=== PATIENT | female | born 1985 | race Caucasian/White ===

== ENCOUNTER 2018-07-11 11:07 | Inpatient (IN) | payer BC ==
[2018-07-11] MEDS ORDERED: Sodium Chloride 0.9% 10 ML Syringe FLUSH PRN (11:38)
[2018-07-11] MEDS ORDERED: Ondansetron 4 MG/2 ML SDV IVPUSH PRN (11:38)
[2018-07-11] MEDS ORDERED: Nalbuphine 20 MG/ML 1 ML Syringe IVPUSH PRN (11:38)
[2018-07-11] MEDS ORDERED: Oxytocin/Lactated Ringers 10 UNIT/1,000 ML BAG IV SCH ×2 (11:45)
[2018-07-11] MEDS ORDERED: diphenhydrAMINE 50 MG/ML SDV IVPUSH PRN (13:21)
[2018-07-11] MEDS ORDERED: fentaNYL 100 MCG/2 ML SDV EPIDUR PRN (13:21)
[2018-07-11] MEDS ORDERED: ePHEDrine 50 MG/ML SDV IVPUSH PRN (13:21)
[2018-07-11] MEDS ORDERED: fentaNYL/Bupivacaine-NS 2 MCG/ML-0.125%/PF 100 ML Bag EP SCH (13:30)
[2018-07-11] MEDS: Lactated Ringers 1,000 ML IV SCH ×2 (13:41→14:27)
--- NOTE | 2018-07-11 13:59 | PCM.PREANE ---
Preanesthetic Assessment - Anesthesia/Transfusion/Family Hx Anesthesia History: Prior Anesthesia Without Reaction Family History of Anesthesia Reaction: No Transfusion History: No Prior Transfusion(s) - Review of Systems General: Fatigue Pulmonary: No Symptoms Cardiovascular: No Symptoms Gastrointestinal: Abdominal Pain (labor contractions) Neurological: No Symptoms Other: Reports: None - Physical Assessment Pulse: 92 O2 Sat by Pulse Oximetry: 98 Respiratory Rate: 20 Blood Pressure: 145/61 Temperature: 36.3 C Vital Signs: Last Vital Signs Temp 36.9 C 07/11/18 11:39 Pulse 119 H 07/11/18 11:39 Resp 20 07/11/18 11:39 BP 132/84 07/11/18 11:39 Pulse Ox Height: 1.7 m Weight: 108.409 kg ASA Class: 2 Mental Status: Alert & Oriented x3 Airway Class: Mallampati = 1 Dentition: Reports: Normal Dentition Thyro-Mental Finger Breadths: 3 Mouth Opening Finger Breadths: 3 ROM/Head Extension: Full Lungs: Clear to Auscultation, Normal Respiratory Effort Cardiovascular: Regular Rate, Regular Rhythm - Lab Values: Laboratory Last Values WBC 10.54 K/mm3 (3.98-10.04) H 07/11/18 12:08 RBC 4.52 M/mm3 (3.98-5.22) 07/11/18 12:08 Hgb 14.0 gm/L (11.2-15.7) 07/11/18 12:08 Hct 41.1 % (34.1-44.9) 07/11/18 12:08 MCV 90.9 fl (79.4-94.8) 07/11/18 12:08 MCH 31.0 pg (25.6-32.2) 07/11/18 12:08 MCHC 34.1 g/dl (32.2-35.5) 07/11/18 12:08 RDW Std Deviation 43.0 fL (36.4-46.3) 07/11/18 12:08 Plt Count 251 K/mm3 (182-369) 07/11/18 12:08 MPV 10.2 fl (9.4-12.3) 07/11/18 12:08 Neut % (Auto) 74.4 % (34.0-71.1) H 07/11/18 12:08 Lymph % (Auto) 17.2 % (19.3-51.7) L 07/11/18 12:08 [place] % (Auto) 7.8 % (4.7-12.5) 07/11/18 12:08 Eos % (Auto) 0.1 (0.7-5.8) L 07/11/18 12:08 Baso % (Auto) 0.1 % (0.1-1.2) 07/11/18 12:08 Neut # (Auto) 7.85 K/mm3 (1.56-6.13) H 07/11/18 12:08 Lymph # (Auto) 1.81 K/mm3 (1.18-3.74) 07/11/18 12:08 [place] # (Auto) 0.82 K/mm3 (0.24-0.36) H 07/11/18 12:08 Eos # (Auto) 0.01 K/mm3 (0.04-0.36) L 07/11/18 12:08 Baso # (Auto) 0.01 K/mm3 (0.01-0.08) 07/11/18 12:08 Blood Type A POSITIVE 07/11/18 12:08 Gel Antibody Screen Negative 07/11/18 12:08 - Allergies Allergies/Adverse Reactions: Allergies Allergy/AdvReac Type Severity Reaction Status Date / Time No Known Allergies Allergy Verified 05/11/17 11:23 - Anesthesia Plan Pre-Op Medication Ordered: None - Acknowledgements Anesthesia Type Planned: Epidural Pt an Appropriate Candidate for the Planned Anesthesia: Yes Alternatives and Risks of Anesthesia Discussed w Pt/Guardian: Yes Pt/Guardian Understands and Agrees with Anesthesia Plan: Yes PreAnesthesia Questionnaire Gastrointestinal History: Reports: Chronic Constipation, GERD 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: twin Psychiatric History: Reports: Depression - Past Surgical History HEENT Surgical History: Reports: Oral Surgery, Tonsillectomy GI Surgical History: Reports: Colonoscopy - SUBSTANCE USE Smoking Status *Q: Never Smoker Second Hand Smoke Exposure: No Recreational Drug Use History: No - HOME MEDS Home Medications: Home Meds Escitalopram Oxalate [Lexapro] 5 mg PO QAM 07/11/18 [History] Omeprazole Magnesium [Prilosec Otc] 20 mg PO DAILY 07/11/18 [History] PNV95/Ferrous Fumarate/FA [ Tablet] 1 each PO DAILY 07/11/18 [History] - CURRENT (IN HOUSE) MEDS Current Meds: Current Medications Diphenhydramine HCl (Benadryl) 25 mg IVPUSH Q6H PRN PRN Reason: Itching Ephedrine Sulfate (Ephedrine Sulfate) 5 mg IVPUSH ASDIRECTED PRN PRN Reason: HYPOTENTSION Fentanyl (Sublimaze) 100 mcg EPIDUR Q3H PRN PRN Reason: Pain Last Admin: 07/11/18 13:52 Dose: 100 mcg Fentanyl/Bupivacaine HCl (Ightsyeq-Afvtt-Ep 2 Mcg/Ml-0.125%) 100 ml EP ASDIRECTED ENEDINA Last Admin: 07/11/18 13:53 Dose: 100 ml Lactated Ringer's (Ringers, Lactated) 1,000 mls @ 100 mls/hr IV ASDIRECTED ENEDINA Last Admin: 07/11/18 13:41 Dose: 100 mls/hr Oxytocin/Lactated Ringer's (Pitocin In Lr 10 Units/1,000 Ml) 10 unit in 1,000 mls @ 12 mls/hr IV TITRATE ENEDINA; Protocol Oxytocin/Lactated Ringer's (Pitocin In Lr 10 Units/1,000 Ml) 10 unit in 1,000 mls @ 500 mls/hr IV .CONTINUOUS ENEDINA Lidocaine HCl (Xylocaine 1%) 50 ml INJECT ONETIME ONE Stop: 07/11/18 18:01 Nalbuphine HCl (Nubain) 10 mg IVPUSH Q2H PRN PRN Reason: pain Ondansetron HCl (Zofran) 4 mg IVPUSH Q4H PRN PRN Reason: Nausea/Vomiting Sodium Chloride (Saline Flush) 10 ml FLUSH ASDIRECTED PRN PRN Reason: Keep Vein Open
[2018-07-11] MEDS ORDERED: Methylergonovine 0.2 MG/1 ML Amp IM ONE (16:30)
--- NOTE | 2018-07-11 16:58 | PCM.SN ---
- Free Text/Narrative Note: Stage I - Patient presented with regular contractions at 2.5/100/0 and with some vaginal bleeding. AROM clear fluid. Progressed to complete with overall reassuring FHT. Stage II - Moved to OR. of viable male, weight 2580g APGARS 7/9 at 1610. Baby B then came down vtx from breech earlier. of viable male, APGARS 8/9 weight 2290g at 1619. Head delivered in controlled manner over intact perineum. Body and shoulders atraumatically. Cord clamped and cut. Baby B vtx. AROM clear fluid. Head delivered in controlled manner over intact perineum, body and shoulders without difficulty. Baby to warmer. Cord blood collected. Stage III - of intact placenta. 3vc. EBL 650. Methergine given after pitocin. Bladder emptied. 1st degree MLL repaired with 3-0 monocryl.
[2018-07-11] MEDS ORDERED: Witch Hazel Medicated Pads 100/Jar TOP PRN (17:29)
[2018-07-11] MEDS ORDERED: Benzocaine/Menthol 20%-0.5% Spray 56 GM Canister TOP PRN (17:29)
[2018-07-11] MEDS ORDERED: Lanolin 100% Cream 7 GM Tube TOP PRN (17:29)
[2018-07-11] MEDS ORDERED: Lidocaine 1% 50 ML MDV INJECT ONE (18:00)
[2018-07-11] MEDS: Ibuprofen 600 MG Tab PO PRN (19:44)
[2018-07-11] MEDS ORDERED: Bupivacaine 0.25% 10 ML SDV ONE (22:00)
--- NOTE | 2018-07-12 08:42 | PCM48HPAN ---
Post Anesthesia Note - EVALUATION WITHIN 48HRS OF ANESTHETIC Vital Signs in Normal Range: Yes Patient Participated in Evaluation: Yes Respiratory Function Stable: Yes Airway Patent: Yes Cardiovascular Function Stable: Yes Hydration Status Stable: Yes Pain Control Satisfactory: Yes Nausea and Vomiting Control Satisfactory: Yes Pulse Rate: 103 Resp Rate: 14 Temperature: 98.2 F Blood Pressure: 129/76
[2018-07-12] MEDS: Ibuprofen 600 MG Tab PO PRN (10:48)
[2018-07-13] MEDS: Ibuprofen 600 MG Tab PO PRN (04:11)
--- NOTE | 2018-07-13 08:21 | PCM.PNPP ---
- General Info Date of Service: 07/12/18 Functional Status: Reports: Pain Controlled - Review of Systems General: Reports: No Symptoms HEENT: Reports: No Symptoms Pulmonary: Reports: No Symptoms Cardiovascular: Reports: No Symptoms Gastrointestinal: Reports: No Symptoms Genitourinary: Reports: No Symptoms Musculoskeletal: Reports: No Symptoms Skin: Reports: No Symptoms Neurological: Reports: No Symptoms Psychiatric: Reports: No Symptoms - General Info Date of Service: 07/12/18 - Patient Data Vital Signs - Most Recent: Last Vital Signs Temp 36.7 C 07/13/18 04:32 Pulse 82 07/13/18 04:32 Resp 15 07/13/18 04:32 BP 112/60 07/13/18 04:32 Pulse Ox 96 07/13/18 04:32 Weight - Most Recent: 108.409 kg I&O - Last 24 Hours: Intake & Output 07/12/18 07/13/18 07/13/18 22:59 06:59 14:59 Intake Total 560 Balance 560 Lab Results - Last 24 Hours: Laboratory Results - last 24 hr 07/11/18 Range/Units 12:08 RPR Non-reactive (NONREACTIVE) Med Orders - Current: Current Medications Benzocaine/Menthol (Dermoplast Pain Relief [place]) 0 gm TOP ASDIRECTED PRN PRN Reason: Perineal Comfort Measure Last Admin: 07/11/18 19:45 Dose: 1 spray Emollient Ointment (Lansinoh Hpa) 0 gm TOP ASDIRECTED PRN PRN Reason: Sore Nipples Last Admin: 07/12/18 18:20 Dose: 1 applic Ibuprofen (Motrin) 600 mg PO Q6H PRN PRN Reason: Mild pain or fever Last Admin: 07/13/18 04:11 Dose: 600 mg Witch Lurdes (Tucks) 1 pad TOP ASDIRECTED PRN PRN Reason: Hemorrhoid pain Last Admin: 07/11/18 19:45 Dose: 1 pad Discontinued Medications Bupivacaine HCl (Sensorcaine-Mpf 0.25%) 10 ml .ROUTE .STK-MED ONE Stop: 07/11/18 22:01 Diphenhydramine HCl (Benadryl) 25 mg IVPUSH Q6H PRN PRN Reason: Itching Ephedrine Sulfate (Ephedrine Sulfate) 5 mg IVPUSH ASDIRECTED PRN PRN Reason: HYPOTENTSION Fentanyl (Sublimaze) 100 mcg EPIDUR Q3H PRN PRN Reason: Pain Last Admin: 07/11/18 13:52 Dose: 100 mcg Fentanyl/Bupivacaine HCl (Hanrqiqy-Gkuvd-Ii 2 Mcg/Ml-0.125%) 100 ml EP ASDIRECTED ENEDINA Last Admin: 07/11/18 13:53 Dose: 100 ml Lactated Ringer's (Ringers, Lactated) 1,000 mls @ 100 mls/hr IV ASDIRECTED ENEDINA Last Admin: 07/11/18 14:27 Dose: 100 mls/hr Oxytocin/Lactated Ringer's (Pitocin In Lr 10 Units/1,000 Ml) 10 unit in 1,000 mls @ 12 mls/hr IV TITRATE ENEDINA; Protocol Oxytocin/Lactated Ringer's (Pitocin In Lr 10 Units/1,000 Ml) 10 unit in 1,000 mls @ 500 mls/hr IV .CONTINUOUS ENEDINA Lidocaine HCl (Xylocaine 1%) 50 ml INJECT ONETIME ONE Stop: 07/11/18 18:01 Methylergonovine Maleate (Methergine) 0.2 mg IM ONETIME ONE Stop: 07/11/18 16:31 Last Admin: 07/11/18 19:44 Dose: 0.2 mg Nalbuphine HCl (Nubain) 10 mg IVPUSH Q2H PRN PRN Reason: pain Ondansetron HCl (Zofran) 4 mg IVPUSH Q4H PRN PRN Reason: Nausea/Vomiting Sodium Chloride (Saline Flush) 10 ml FLUSH ASDIRECTED PRN PRN Reason: Keep Vein Open - Interaction Support Person: - Recovery Exam Fundal Tone: Firm Fundal Level: At Umbilicus Fundal Placement: Midline Lochia Amount: Small Lochia Color: Rubra/Red Episiotomy/Laceration: Approximated Bladder Status: Voiding Urinary Elimination: Voided - Exam General: Alert, Oriented HEENT: Pupils Equal Neck: Supple Lungs: Clear to Auscultation, Normal Respiratory Effort Cardiovascular: Regular Rate, Regular Rhythm GI/Abdominal Exam: Normal Bowel Sounds, Soft, Non-Tender, No Organomegaly, No Distention, No Abnormal Bruit, No Mass, Pelvis Stable Extremities: Normal Inspection, Normal Range of Motion, Non-Tender, No Pedal Edema, Normal Capillary Refill Skin: Warm, Dry, Intact Neurological: No New Focal Deficit Psy/Mental Status: Alert, Normal Affect, Normal Mood - Problem List Review Problem List Initiated/Reviewed/Updated: Yes - My Orders Last 24 Hours: My Active Orders 07/12/18 17:29 Heat Therapy [OM.THIERRY] PRN
--- NOTE | 2018-07-13 08:25 | PCM.DCSUM1 ---
Discharge Summary - Hospital Course Diagnosis: Stroke: No - Discharge Data Discharge Date: 07/13/18 Discharge Disposition: Admitted As Inpatient 67 Condition: Good - Discharge Plan *PRESCRIPTION DRUG MONITORING PROGRAM REVIEWED*: No *COPY OF PRESCRIPTION DRUG MONITORING REPORT IN PATIENT TAIWO: No Home Medications: Home Meds Escitalopram Oxalate [Lexapro] 5 mg PO QAM 07/11/18 [History] Omeprazole Magnesium [Prilosec Otc] 20 mg PO DAILY 07/11/18 [History] PNV95/Ferrous Fumarate/FA [ Tablet] 1 each PO DAILY 07/11/18 [History] Patient Handouts: Breast Pumping Tips, Vaginal Delivery, Care After Referrals: Lucretia Correia MD [Primary Care Provider] - - Discharge Summary/Plan Comment DC Time >30 min.: Yes - General Info Date of Service: 07/13/18 Functional Status: Reports: Pain Controlled - Review of Systems General: Reports: No Symptoms HEENT: Reports: No Symptoms Pulmonary: Reports: No Symptoms Cardiovascular: Reports: No Symptoms Gastrointestinal: Reports: No Symptoms Genitourinary: Reports: No Symptoms Musculoskeletal: Reports: No Symptoms Skin: Reports: No Symptoms Neurological: Reports: No Symptoms Psychiatric: Reports: No Symptoms - Patient Data Vitals - Most Recent: Last Vital Signs Temp 36.7 C 07/13/18 04:32 Pulse 82 07/13/18 04:32 Resp 15 07/13/18 04:32 BP 112/60 07/13/18 04:32 Pulse Ox 96 07/13/18 04:32 Weight - Most Recent: 108.409 kg I&O - Last 24 hours: Intake & Output 07/12/18 07/13/18 07/13/18 22:59 06:59 14:59 Intake Total 560 Balance 560 Lab Results - Last 24 hrs: Laboratory Results - last 24 hr 07/11/18 Range/Units 12:08 RPR Non-reactive (NONREACTIVE) Med Orders - Current: Current Medications Benzocaine/Menthol (Dermoplast Pain Relief [place]) 0 gm TOP ASDIRECTED PRN PRN Reason: Perineal Comfort Measure Last Admin: 07/11/18 19:45 Dose: 1 spray Emollient Ointment (Lansinoh Hpa) 0 gm TOP ASDIRECTED PRN PRN Reason: Sore Nipples Last Admin: 01/31/19 18:20 Dose: 1 applic Ibuprofen (Motrin) 600 mg PO Q6H PRN PRN Reason: Mild pain or fever Last Admin: 07/13/18 04:11 Dose: 600 mg Witch Lurdes (Tucks) 1 pad TOP ASDIRECTED PRN PRN Reason: Hemorrhoid pain Last Admin: 07/11/18 19:45 Dose: 1 pad Discontinued Medications Bupivacaine HCl (Sensorcaine-Mpf 0.25%) 10 ml .ROUTE .STK-MED ONE Stop: 07/11/18 22:01 Diphenhydramine HCl (Benadryl) 25 mg IVPUSH Q6H PRN PRN Reason: Itching Ephedrine Sulfate (Ephedrine Sulfate) 5 mg IVPUSH ASDIRECTED PRN PRN Reason: HYPOTENTSION Fentanyl (Sublimaze) 100 mcg EPIDUR Q3H PRN PRN Reason: Pain Last Admin: 07/11/18 13:52 Dose: 100 mcg Fentanyl/Bupivacaine HCl (Ulhldabr-Bmfuf-Es 2 Mcg/Ml-0.125%) 100 ml EP ASDIRECTED ENEDINA Last Admin: 07/11/18 13:53 Dose: 100 ml Lactated Ringer's (Ringers, Lactated) 1,000 mls @ 100 mls/hr IV ASDIRECTED ENEDINA Last Admin: 07/11/18 14:27 Dose: 100 mls/hr Oxytocin/Lactated Ringer's (Pitocin In Lr 10 Units/1,000 Ml) 10 unit in 1,000 mls @ 12 mls/hr IV TITRATE ENEDINA; Protocol Oxytocin/Lactated Ringer's (Pitocin In Lr 10 Units/1,000 Ml) 10 unit in 1,000 mls @ 500 mls/hr IV .CONTINUOUS ENEDINA Lidocaine HCl (Xylocaine 1%) 50 ml INJECT ONETIME ONE Stop: 07/11/18 18:01 Methylergonovine Maleate (Methergine) 0.2 mg IM ONETIME ONE Stop: 07/11/18 16:31 Last Admin: 07/11/18 19:44 Dose: 0.2 mg Nalbuphine HCl (Nubain) 10 mg IVPUSH Q2H PRN PRN Reason: pain Ondansetron HCl (Zofran) 4 mg IVPUSH Q4H PRN PRN Reason: Nausea/Vomiting Sodium Chloride (Saline Flush) 10 ml FLUSH ASDIRECTED PRN PRN Reason: Keep Vein Open
== END 2018-07-13 12:32 | disposition critical access hospital (66) | DRG 560 ==
LOC: JD.OBCHECK 11:07 → JD.OB 11:07 → JD.OBCHECK 11:39 → JD.OB 11:39 → OBSVTOIN 16:10 → JD.OB 16:11
PROVIDERS: ADMIT Obstetrics & Gynecology; ATTEND Obstetrics & Gynecology
PROC: 6A550ZT Pheresis of Cord Blood Stem Cells, Single (ICD-10-PCS; principal; 2018-07-11)
PROC: 10907ZC Drainage of Amniotic Fluid, Therapeutic from Products of Conception, Via Natural or Artificial Opening (ICD-10-PCS; principal; 2018-07-11)
PROC: 10E0XZZ Delivery of Products of Conception, External Approach (ICD-10-PCS; principal; 2018-07-11)
PROC: 0HQ9XZZ Repair Perineum Skin, External Approach (ICD-10-PCS; principal; 2018-07-11)
PROC: 3E0R3BZ Introduction of Anesthetic Agent into Spinal Canal, Percutaneous Approach (ICD-10-PCS; 2018-07-11)
PROC: 00HU33Z Insertion of Infusion Device into Spinal Canal, Percutaneous Approach (ICD-10-PCS; 2018-07-11)
DX: O30.043 Twin pregnancy, dichorionic/diamniotic, third trimester (principal); O99.344 Other mental disorders complicating childbirth; Z37.2 Twins, both liveborn; O99.62 Diseases of the digestive system complicating childbirth; F32.9 Major depressive disorder, single episode, unspecified; K59.09 Other constipation; O70.0 First degree perineal laceration during delivery; K21.9 Gastro-esophageal reflux disease without esophagitis; Z79.899 Other long term (current) drug therapy; Z3A.37 37 weeks gestation of pregnancy
CPT/HCPCS: 36415; 51702; 59025; 59409; 85025; 86592; 86850; 86900; 86901; A9270-GY; J2210; J3010; J3490; J7120

== ENCOUNTER 2019-12-03 14:39 | Inpatient (IN) | payer BC ==
[~2019-12-03 14:39] MED LIST: Bupivacaine 0.25% 10 ML SDV ONE
[2019-12-03] MEDS ORDERED: Sodium Chloride 0.9% 10 ML Syringe FLUSH PRN (14:50)
[2019-12-03] MEDS ORDERED: Ondansetron 4 MG/2 ML SDV IVPUSH PRN ×2 (14:50→20:07)
[2019-12-03] MEDS ORDERED: Nalbuphine 10 MG/ML Syringe IVPUSH PRN (14:50)
[2019-12-03] MEDS ORDERED: Oxytocin/Lactated Ringers 10 UNIT/1,000 ML BAG IV SCH ×2 (15:00)
[2019-12-03] MEDS ORDERED: Ampicillin 2 GM in Sodium Chloride 0.9% 100 ML IV ONE (15:00)
[2019-12-03] MEDS: Lactated Ringers 1,000 ML IV SCH ×2 (15:23→22:30)
[2019-12-03] MEDS: Ampicillin 1 GM in Sodium Chloride 0.9% 100 ML IV SCH (19:38)
[2019-12-03] MEDS ORDERED: fentaNYL 100 MCG/2 ML SDV EPIDUR PRN (20:07)
[2019-12-03] MEDS ORDERED: ePHEDrine 50 MG/ML SDV IVPUSH PRN (20:07)
--- NOTE | 2019-12-03 20:13 | PCM.PREANE ---
Preanesthetic Assessment - Anesthesia/Transfusion/Family Hx Anesthesia History: Prior Anesthesia Without Reaction Family History of Anesthesia Reaction: No Transfusion History: No Prior Transfusion(s) Intubation History: Unknown - Review of Systems General: No Symptoms Pulmonary: No Symptoms Cardiovascular: No Symptoms Gastrointestinal: No Symptoms (GERD), Constipation Neurological: No Symptoms Other: Reports: None, Depression - Physical Assessment NPO Status Date: 12/03/19 NPO Status Time: 19:00 Vital Signs: Last Vital Signs Temp 36.8 C 12/03/19 14:51 Pulse Resp 14 12/03/19 14:51 BP 129/79 12/03/19 14:51 Pulse Ox 100 12/03/19 14:51 Asptg=728 Height: 1.7 m Weight: 100.108 kg ASA Class: 2 Mental Status: Alert & Oriented x3 Airway Class: Mallampati = 2 Dentition: Reports: Normal Dentition, [place] Thyro-Mental Finger Breadths: 3 Mouth Opening Finger Breadths: 3 ROM/Head Extension: Full Lungs: Clear to Auscultation, Normal Respiratory Effort Cardiovascular: Regular Rate, Regular Rhythm, No Murmurs - Lab Values: Laboratory Last Values WBC 8.92 K/mm3 (3.98-10.04) 12/03/19 15:10 RBC 4.47 M/mm3 (3.98-5.22) 12/03/19 15:10 Hgb 13.2 gm/dl (11.2-15.7) 12/03/19 15:10 Hct 39.6 % (34.1-44.9) 12/03/19 15:10 MCV 88.6 fl (79.4-94.8) 12/03/19 15:10 MCH 29.5 pg (25.6-32.2) 12/03/19 15:10 MCHC 33.3 g/dl (32.2-35.5) 12/03/19 15:10 RDW Std Deviation 41.7 fL (36.4-46.3) 12/03/19 15:10 Plt Count 310 K/mm3 (182-369) 12/03/19 15:10 MPV 9.6 fl (9.4-12.3) 12/03/19 15:10 Neut % (Auto) 68.5 % (34.0-71.1) 12/03/19 15:10 Lymph % (Auto) 21.4 % (19.3-51.7) 12/03/19 15:10 [place] % (Auto) 9.2 % (4.7-12.5) 12/03/19 15:10 Eos % (Auto) 0.4 (0.7-5.8) L 12/03/19 15:10 Baso % (Auto) 0.1 % (0.1-1.2) 12/03/19 15:10 Neut # (Auto) 6.10 K/mm3 (1.56-6.13) 12/03/19 15:10 Lymph # (Auto) 1.91 K/mm3 (1.18-3.74) 12/03/19 15:10 [place] # (Auto) 0.82 K/mm3 (0.24-0.36) H 12/03/19 15:10 Eos # (Auto) 0.04 K/mm3 (0.04-0.36) 12/03/19 15:10 Baso # (Auto) 0.01 K/mm3 (0.01-0.08) 12/03/19 15:10 Above labs reviewed and noted and within acceptable ranges to proceed with epidural if desired. 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: twin Psychiatric History: Reports: Depression - Past Surgical History HEENT Surgical History: Reports: Oral Surgery, Tonsillectomy GI Surgical History: Reports: Colonoscopy - SUBSTANCE USE Smoking Status *Q: Never Smoker Second Hand Smoke Exposure: No Recreational Drug Use History: No - HOME MEDS Home Medications: Home Meds Pnv No.95/Ferrous Fum/Folic AC [ Tablet] 1 each PO DAILY 07/11/18 [History] Docusate Sodium [Colace] 100 mg PO DAILY 12/03/19 [History] Escitalopram Oxalate [Lexapro] 5 mg PO ASDIRECTED 12/03/19 [History] [place]-3/DHA/Epa/Fish Oil [Fish Oil 1,000 mg Softgel] 1 each PO DAILY 12/03/19 [History] - CURRENT (IN HOUSE) MEDS Current Meds: Current Medications Ephedrine Sulfate (Ephedrine Sulfate) 5 mg IVPUSH ASDIRECTED PRN PRN Reason: Hypotension Fentanyl (Sublimaze) 100 mcg EPIDUR Q3H PRN PRN Reason: Pain Fentanyl/Bupivacaine HCl (Fentanyl/Bupivacaine/Ns 2 Mcg-0.125% 100 Ml) 100 ml EPIDUR ASDIRECTED ENEDINA Ampicillin Sodium 1 gm/ Sodium (Chloride) 100 mls @ 200 mls/hr IV Q4H ENEDINA Last Admin: 12/03/19 19:38 Dose: 200 mls/hr Documented by: Oxytocin/Lactated Ringer's (Pitocin In Lr 10 Units/1,000 Ml) 10 unit in 1,000 mls @ 12 mls/hr IV TITRATE ENEDINA; Protocol Last Titration: 12/03/19 20:10 Dose: 12 munits/min, 72 mls/hr Documented by: Oxytocin/Lactated Ringer's (Pitocin In Lr 10 Units/1,000 Ml) 10 unit in 1,000 mls @ 100 mls/hr IV .CONTINUOUS ENEDINA Lactated Ringer's (Ringers, Lactated) 1,000 mls @ 100 mls/hr IV ASDIRECTED ENEDINA Last Admin: 12/03/19 15:23 Dose: 100 mls/hr Documented by: Phenylephrine HCl 1 mg/ Sodium (Chloride) 10.1 mls @ 1 mls/sec IV TITRATE ENEDINA; Protocol Nalbuphine HCl (Nubain) 10 mg IVPUSH Q2H PRN PRN Reason: Pain Last Admin: 12/03/19 20:03 Dose: 10 mg Documented by: Ondansetron HCl (Zofran) 4 mg IVPUSH Q4H PRN PRN Reason: Nausea/Vomiting Ondansetron HCl (Zofran) 4 mg IVPUSH ONETIME PRN PRN Reason: Nausea/Vomiting Sodium Chloride (Saline Flush) 10 ml FLUSH ASDIRECTED PRN PRN Reason: Keep Vein Open Discontinued Medications Ampicillin Sodium 2 gm/ Sodium (Chloride) 100 mls @ 200 mls/hr IV ONETIME ONE Stop: 12/03/19 15:29 Last Admin: 12/03/19 15:23 Dose: 200 mls/hr Documented by:
[2019-12-03] MEDS ORDERED: Phenylephrine 1 MG in Sodium Chloride 0.9% 10 ML IV SCH (20:15)
[2019-12-03] MEDS ORDERED: Bupivacaine/fentaNYL/NS 100 ML Bag EPIDUR SCH (20:15)
--- NOTE | 2019-12-03 23:59 | PCM.LDHP ---
L&D History of Present Illness - General Date of Service: 12/03/19 Admit Problem/Dx: Patient Status Order with Admit Dx/Problem 12/03/19 14:51 Patient Status [ADT] Routine Admission Diagnosis/Problem Admission Diagnosis/Problem Source of Information: Patient History Limitations: Reports: No Limitations - History of Present Illness Introduction:: 34 year old presented to clinic at 39w3 with SROM (nitrazine and pool positive). PNC complicated by history of twins last delivery and GBS positive Pain Score: 8 - Related Data Allergies/Adverse Reactions: Allergies Allergy/AdvReac Type Severity Reaction Status Date / Time No Known Allergies Allergy Verified 12/03/19 14:48 Home Medications: Home Meds Pnv No.95/Ferrous Fum/Folic AC [ Tablet] 1 each PO DAILY 07/11/18 [History] Docusate Sodium [Colace] 100 mg PO DAILY 12/03/19 [History] Escitalopram Oxalate [Lexapro] 5 mg PO ASDIRECTED 12/03/19 [History] [place]-3/DHA/Epa/Fish Oil [Fish Oil 1,000 mg Softgel] 1 each PO DAILY 12/03/19 [History] Past Medical History Gastrointestinal History: Reports: Chronic Constipation [employer] History: Reports: Other OB/BYN History: twin Psychiatric History: Reports: Depression - Past Surgical History HEENT Surgical History: Reports: Oral Surgery, Tonsillectomy GI Surgical History: Reports: Colonoscopy Social & Family History - Family History Family Medical History: Noncontributory - Tobacco Use Smoking Status *Q: Never Smoker Second Hand Smoke Exposure: No - Caffeine Use Caffeine Use: Reports: Coffee, Soda - Recreational Drug Use Recreational Drug Use: No H&P Review of Systems - Review of Systems: Review Of Systems: See Below General: Reports: No Symptoms HEENT: Reports: No Symptoms Pulmonary: Reports: No Symptoms Cardiovascular: Reports: No Symptoms Gastrointestinal: Reports: No Symptoms Genitourinary: Reports: No Symptoms Musculoskeletal: Reports: No Symptoms Skin: Reports: No Symptoms Psychiatric: Reports: No Symptoms Neurological: Reports: No Symptoms Hematologic/Lymphatic: Reports: No Symptoms Immunologic: Reports: No Symptoms L&D Exam - Exam Exam: See Below - Vital Signs Vital Signs: Last Vital Signs Temp 36.8 C 12/03/19 14:51 Pulse Resp 14 12/03/19 14:51 BP 129/79 12/03/19 14:51 Pulse Ox 100 12/03/19 14:51 Weight: 100.108 kg - OB Specific Contraction Intensity: Moderate Movement: Active Heart Tones: Present Heart Tones per Min: 130 Heart Rate (FHR) Variability: Moderate (6-25 bmp) Presentation: Vertex - Nevarez Score Nevarez Score Cervix Position: Midposition Nevraez Score Consistency: Soft Nevarez Score Effacement: >80% Nevarez Score Dilation: 3-4 cm Nevarez Score 's Station: -2 Nevarez Score Total: 9 - Exam General: Alert, Oriented HEENT: PERRLA, Conjunctiva Clear, EACs Clear, EOMI, Hearing Intact, Mucosa Moist & [place], Nares Patent, Normal Nasal Septum, Posterior Pharynx Clear, TMs Clear Neck: Supple, Trachea Midline Lungs: Clear to Auscultation, Normal Respiratory Effort Cardiovascular: Regular Rate, Regular Rhythm GI/Abdominal Exam: Normal Bowel Sounds, Soft, Non-Tender, No Organomegaly, No Distention, No Abnormal Bruit, No Mass, Pelvis Stable Back Exam: Normal Inspection, Full Range of Motion Extremities: Normal Inspection, Normal Range of Motion, Non-Tender, No Pedal Edema, Normal Capillary Refill Skin: Warm, Dry, Intact Neurological: Cranial Nerves Intact, Reflexes Equal Bilateral Psychiatric: Alert, Normal Affect, Normal Mood - Patient Data Lab Results Last 24 hrs: Laboratory Results - last 24 hr 12/03/19 Range/Units 15:10 WBC 8.92 (3.98-10.04) K/mm3 RBC 4.47 (3.98-5.22) M/mm3 Hgb 13.2 (11.2-15.7) gm/dl Hct 39.6 (34.1-44.9) % MCV 88.6 (79.4-94.8) fl MCH 29.5 (25.6-32.2) pg MCHC 33.3 (32.2-35.5) g/dl RDW Std Deviation 41.7 (36.4-46.3) fL Plt Count 310 (182-369) K/mm3 MPV 9.6 (9.4-12.3) fl Neut % (Auto) 68.5 (34.0-71.1) % Lymph % (Auto) 21.4 (19.3-51.7) % [place] % (Auto) 9.2 (4.7-12.5) % Eos % (Auto) 0.4 L (0.7-5.8) Baso % (Auto) 0.1 (0.1-1.2) % Neut # (Auto) 6.10 (1.56-6.13) K/mm3 Lymph # (Auto) 1.91 (1.18-3.74) K/mm3 [place] # (Auto) 0.82 H (0.24-0.36) K/mm3 Eos # (Auto) 0.04 (0.04-0.36) K/mm3 Baso # (Auto) 0.01 (0.01-0.08) K/mm3 Result Diagrams: 12/03/19 15:10 Problem List Initiated/Reviewed/Updated: Yes Orders Last 24hrs: Active Orders 24 hr Category Date Time Status Patient Status [ADT] Routine ADT 12/03/19 14:51 Active Activity as Tolerated [RC] PFP Care 12/03/19 14:51 Active Communication Order [RC] ASDIRECTED Care 12/03/19 14:51 Active Heart Tones [RC] ASDIRECTED Care 12/03/19 14:51 Active Notify Provider [RC] ASDIRECTED Care 12/03/19 20:07 Active Notify Provider [RC] PFP Care 12/03/19 14:51 Active Notify Provider [RC] PRN Care 12/03/19 14:51 Active Oxygen Therapy [RC] ASDIRECTED Care 12/03/19 20:07 Active Peripheral IV Care [RC] . DIRECTED Care 12/03/19 14:51 Active Pulse Oximetry [RC] ASDIRECTED Care 12/03/19 20:07 Active Vital Signs [RC] PER UNIT ROUTINE Care 12/03/19 14:51 Active Regular Diet [DIET] Diet 12/03/19 Dinner Active BLOOD BANK HOLD SPECIMEN [BBK] Stat Lab 12/03/19 15:10 Received RAPID PLASMA REAGIN,RPR [CHEM] Routine Lab 12/03/19 15:10 Received Ampicillin 1 gm Med 12/03/19 19:30 Active Sodium Chloride 0.9% [Normal Saline] 100 ml IV Q4H Bupivacaine/fentaNYL/NS [fentaNYL/Bupivacaine/NS 2 MCG- Med 12/03/19 20:15 Active 0.125% 100 ML] 100 ml EPIDUR ASDIRECTED Lactated Ringers [Ringers, Lactated] 1,000 ml Med 12/03/19 15:00 Active IV ASDIRECTED Nalbuphine [Nubain] Med 12/03/19 14:50 Active 10 mg IVPUSH Q2H PRN Ondansetron [Zofran] Med 12/03/19 20:07 Active 4 mg IVPUSH ONETIME PRN Ondansetron [Zofran] Med 12/03/19 14:50 Active 4 mg IVPUSH Q4H PRN Oxytocin/Lactated Ringers [Pitocin in LR 10 Units/1,000 Med 12/03/19 15:00 Active ML] 10 unit in 1,000 ml IV .CONTINUOUS Oxytocin/Lactated Ringers [Pitocin in LR 10 Units/1,000 Med 12/03/19 15:00 Active ML] 10 unit in 1,000 ml IV TITRATE Phenylephrine [Fred-Synephrine] 1 mg Med 12/03/19 20:15 Active Sodium Chloride 0.9% [Normal Saline] 10 ml IV TITRATE Sodium Chloride 0.9% [Saline Flush] Med 12/03/19 14:50 Active 10 ml FLUSH ASDIRECTED PRN ePHEDrine [ePHEDrine sulfate] [facility] 12/03/19 20:07 Active 5 mg IVPUSH ASDIRECTED PRN fentaNYL [Sublimaze] [facility] 12/03/19 20:07 Active 100 mcg EPIDUR Q3H PRN Electronic Heart Tones Ext w TOCO [WOMSER] Oth 12/03/19 14:51 Ordered Routine Electronic Heart Tones Internal [WOMSER] Per Unit Ot 12/03/19 14:51 Ordered Routine Peripheral IV Insertion Adult [OM.PC] Routine Oth 12/03/19 14:51 Ordered Resuscitation Status Routine Resus Stat 12/03/19 14:50 Ordered Medication Orders Ephedrine Sulfate (Ephedrine Sulfate) 5 mg IVPUSH ASDIRECTED PRN PRN Reason: Hypotension Fentanyl (Sublimaze) 100 mcg EPIDUR Q3H PRN PRN Reason: Pain Last Admin: 12/03/19 22:45 Dose: 100 mcg Documented by: ANTHONYRTAM Fentanyl/Bupivacaine HCl (Fentanyl/Bupivacaine/Ns 2 Mcg-0.125% 100 Ml) 100 ml EPIDUR ASDIRECTED ENEDINA Last Admin: 12/03/19 22:46 Dose: 100 ml Documented by: HIREN Ampicillin Sodium 1 gm/ Sodium (Chloride) 100 mls @ 200 mls/hr IV Q4H ENEDINA Last Admin: 12/03/19 19:38 Dose: 200 mls/hr Documented by: HIREN Oxytocin/Lactated Ringer's (Pitocin In Lr 10 Units/1,000 Ml) 10 unit in 1,000 mls @ 12 mls/hr IV TITRATE ENEDINA; Protocol Last Titration: 12/03/19 23:02 Dose: 10 munits/min, 60 mls/hr Documented by: Titration: 12/03/19 20:47 Dose: 14 munits/min, 84 mls/hr Documented by: ANTHONYRTYEIMI Titration: 12/03/19 20:10 Dose: 12 munits/min, 72 mls/hr Documented by: ANTHONYRTYEIMI Titration: 12/03/19 18:25 Dose: 10 munits/min, 60 mls/hr Documented by: Titration: 12/03/19 17:47 Dose: 8 munits/min, 48 mls/hr Documented by: Titration: 12/03/19 17:20 Dose: 6 munits/min, 36 mls/hr Documented by: Titration: 12/03/19 16:49 Dose: 4 munits/min, 24 mls/hr Documented by: Admin: 12/03/19 15:27 Dose: 2 munits/min, 12 mls/hr Documented by: SIOBHAN Oxytocin/Lactated Ringer's (Pitocin In Lr 10 Units/1,000 Ml) 10 unit in 1,000 mls @ 100 mls/hr IV .CONTINUOUS ENEDINA Lactated Ringer's (Ringers, Lactated) 1,000 mls @ 100 mls/hr IV ASDIRECTED ENEDINA Last Infusion: 12/03/19 22:10 Dose: 999 mls/hr Documented by: Admin: 12/03/19 15:23 Dose: 100 mls/hr Documented by: SIOBHAN Phenylephrine HCl 1 mg/ Sodium (Chloride) 10.1 mls @ 1 mls/sec IV TITRATE ENEDINA; Protocol Nalbuphine HCl (Nubain) 10 mg IVPUSH Q2H PRN PRN Reason: Pain Last Admin: 12/03/19 20:03 Dose: 10 mg Documented by: HIREN Ondansetron HCl (Zofran) 4 mg IVPUSH Q4H PRN PRN Reason: Nausea/Vomiting Ondansetron HCl (Zofran) 4 mg IVPUSH ONETIME PRN PRN Reason: Nausea/Vomiting Sodium Chloride (Saline Flush) 10 ml FLUSH ASDIRECTED PRN PRN Reason: Keep Vein Open Assessment/Plan Comment:: Term labor. Augment as needed. AROM of forebag. Anticipate
--- NOTE | 2019-12-04 00:03 | PCM.SN.2 ---
- Free Text/Narrative Note: Stage I - Patient presented with SROM. AROM of forebag, pitocin and antibiotic for GBS. Epidural. Progressed to complete with overall reassuring FHT. Stage II - of viable female, weight 3010g, APGARS 8/9 at 2338. Head delivered in controlled manner over intact perineum. Body and shoulders atraumatically. Nuchal cord. Placed on maternal abdomen. Cord clamped and cut at 1 minute of life. Cord blood collected. Stage III - Placenta delivered spontaneous and intact. Significant bleeding. Bladder emptied (was also emptied just prior to delivery). EBL 350. Pitocin initiated after delivery of baby. Methergine given. No lacerations.
[2019-12-04] MEDS ORDERED: Benzocaine/Menthol 20%-0.5% Spray 56 GM Canister TOP PRN (00:43)
[2019-12-04] MEDS ORDERED: Docusate Sodium 100 MG Cap PO PRN (00:43)
[2019-12-04] MEDS ORDERED: Witch Hazel Medicated Pads 40/Jar TOP PRN (00:43)
[2019-12-04] MEDS ORDERED: Methylergonovine 0.2 MG/1 ML Amp IM PRN (00:43)
[2019-12-04] MEDS: Ampicillin 1 GM in Sodium Chloride 0.9% 100 ML IV SCH (00:49)
[2019-12-04] MEDS: Ibuprofen 600 MG Tab PO PRN ×2 (01:25→16:16)
[2019-12-04] MEDS ORDERED: Dextrose 5%-Lactated Ringers 1,000 ML IV SCH (19:30)
--- NOTE | 2019-12-05 07:55 | PCM.DCSUM1 ---
Discharge Summary - Hospital Course Brief History: Admitted with SROM. Pitocin and AROM of forebag Diagnosis: Stroke: No - Discharge Data Discharge Date: 12/05/19 Discharge Disposition: Home, Self-Care 01 Condition: Good - Referral to Home Health Primary Care Physician: Lucretia Correia MD - Patient Summary/Data Hospital Course: Uncomplicated delivery. Infant with questionable heart block. - Patient Instructions Diet: Usual Diet as Tolerated Activity: No Strenuous Activities Activity, Other: pelvic rest Driving: May Drive Today Showering/Bathing: May Shower Wound/Incision Care: Keep Operative Site/Wound Site Clean and Dry Notify Provider of: Fever, Increased Pain, Swelling and Redness, Drainage, Nausea and/or Vomiting - Discharge Plan *PRESCRIPTION DRUG MONITORING PROGRAM REVIEWED*: No *COPY OF PRESCRIPTION DRUG MONITORING REPORT IN PATIENT TAIWO: No Home Medications: Home Meds Pnv No.95/Ferrous Fum/Folic AC [ Tablet] 1 each PO DAILY 07/11/18 [History] Docusate Sodium [Colace] 100 mg PO DAILY 12/03/19 [History] Escitalopram Oxalate [Lexapro] 5 mg PO ASDIRECTED 12/03/19 [History] [place]-3/DHA/Epa/Fish Oil [Fish Oil 1,000 mg Softgel] 1 each PO DAILY 12/03/19 [History] Patient Handouts: Breast Pumping Tips, and Self-Care, Care After Vaginal Delivery Referrals: Lucretia Correia MD [Primary Care Provider] - - Discharge Summary/Plan Comment DC Time >30 min.: No - General Info Date of Service: 12/05/19 Functional Status: Reports: Pain Controlled - Review of Systems General: Reports: No Symptoms HEENT: Reports: No Symptoms Pulmonary: Reports: No Symptoms Cardiovascular: Reports: No Symptoms Gastrointestinal: Reports: No Symptoms Genitourinary: Reports: No Symptoms Musculoskeletal: Reports: No Symptoms Skin: Reports: No Symptoms Neurological: Reports: No Symptoms Psychiatric: Reports: No Symptoms - Patient Data Vitals - Most Recent: Last Vital Signs Temp 36.7 C 12/05/19 03:59 Pulse 73 12/05/19 03:59 Resp 14 12/05/19 03:59 BP 114/55 L 12/05/19 03:59 Pulse Ox 96 12/05/19 03:59 Weight - Most Recent: 100.108 kg Lab Results - Last 24 hrs: Laboratory Results - last 24 hr 12/03/19 Range/Units 15:10 RPR Non-reactive (NONREACTIVE) Med Orders - Current: Current Medications Benzocaine/Menthol (Dermoplast Pain Relief [place]) 0 gm TOP ASDIRECTED PRN PRN Reason: Perineal Comfort Measure Last Admin: 12/04/19 20:19 Dose: 1 can Documented by: Docusate Sodium (Colace) 100 mg PO BID PRN PRN Reason: Constipation Ibuprofen (Motrin) 600 mg PO Q6H PRN PRN Reason: Mild pain or fever Last Admin: 12/04/19 16:16 Dose: 600 mg Documented by: Methylergonovine Maleate (Methergine) 0.2 mg IM ONETIME PRN PRN Reason: Excessive Vaginal Bleeding Last Admin: 12/03/19 23:55 Dose: 0.2 mg Documented by: Benjamin Santiago) 1 pad TOP ASDIRECTED PRN PRN Reason: Pain Discontinued Medications Bupivacaine HCl (Sensorcaine-Mpf 0.25%) 10 ml .ROUTE .STK-MED ONE Stop: 12/03/19 00:01 Ephedrine Sulfate (Ephedrine Sulfate) 5 mg IVPUSH ASDIRECTED PRN PRN Reason: Hypotension Fentanyl (Sublimaze) 100 mcg EPIDUR Q3H PRN PRN Reason: Pain Last Admin: 12/03/19 22:45 Dose: 100 mcg Documented by: Fentanyl/Bupivacaine HCl (Fentanyl/Bupivacaine/Ns 2 Mcg-0.125% 100 Ml) 100 ml EPIDUR ASDIRECTED ENEDINA Last Admin: 12/03/19 22:46 Dose: 100 ml Documented by: Ampicillin Sodium 2 gm/ Sodium (Chloride) 100 mls @ 200 mls/hr IV ONETIME ONE Stop: 12/03/19 15:29 Last Admin: 12/03/19 15:23 Dose: 200 mls/hr Documented by: Ampicillin Sodium 1 gm/ Sodium (Chloride) 100 mls @ 200 mls/hr IV Q4H [facility] Last Admin: 12/04/19 00:49 Dose: Not Given Documented by: Oxytocin/Lactated Ringer's (Pitocin In Lr 10 Units/1,000 Ml) 10 unit in 1,000 mls @ 12 mls/hr IV TITRATE [facility]; Protocol Last Titration: 12/04/19 00:15 Dose: 41.67 munits/min, 250 mls/hr Documented by: Oxytocin/Lactated Ringer's (Pitocin In Lr 10 Units/1,000 Ml) 10 unit in 1,000 mls @ 100 mls/hr IV .CONTINUOUS ENEDINA Lactated Ringer's (Ringers, Lactated) 1,000 mls @ 100 mls/hr IV ASDIRECTED ENEDINA Last Admin: 12/03/19 22:30 Dose: 999 mls/hr Documented by: Phenylephrine HCl 1 mg/ Sodium (Chloride) 10.1 mls @ 1 mls/sec IV TITRATE ENEDINA; Protocol Nalbuphine HCl (Nubain) 10 mg IVPUSH Q2H PRN PRN Reason: Pain Last Admin: 12/03/19 20:03 Dose: 10 mg Documented by: Ondansetron HCl (Zofran) 4 mg IVPUSH Q4H PRN PRN Reason: Nausea/Vomiting Ondansetron HCl (Zofran) 4 mg IVPUSH ONETIME PRN PRN Reason: Nausea/Vomiting Sodium Chloride (Saline Flush) 10 ml FLUSH ASDIRECTED PRN PRN Reason: Keep Vein Open - Exam General: Reports: Alert, Oriented HEENT: Reports: Pupils Equal, Pupils Reactive, EOMI, Mucous Membr. Moist/[place] Neck: Reports: Supple Lungs: Reports: Clear to Auscultation, Normal Respiratory Effort Cardiovascular: Reports: Regular Rate, Regular Rhythm GI/Abdominal Exam: Normal Bowel Sounds, Soft, Non-Tender, No Organomegaly, No Distention, No Abnormal Bruit, No Mass, Pelvis Stable Rectal (Female) Exam: Normal Exam Back Exam: Reports: Normal Inspection, Full Range of Motion Extremities: Normal Inspection, Normal Range of Motion, Non-Tender, No Pedal Edema, Normal Capillary Refill Skin: Reports: Warm, Dry, Intact Wound/Incisions: Reports: Healing Well Neurological: Reports: No New Focal Deficit Psy/Mental Status: Reports: Alert, Normal Affect, Normal Mood
== END 2019-12-05 18:45 | disposition home or self-care (01) | DRG 560 ==
LOC: JD.OB 14:39 → JD.OBCHECK 14:39 → JD.OB 14:51 → JD.OBCHECK 14:51 → JD.OB 23:38 → OBSVTOIN 23:38
PROVIDERS: ADMIT Obstetrics & Gynecology; ATTEND Obstetrics & Gynecology
PROC: 10E0XZZ Delivery of Products of Conception, External Approach (ICD-10-PCS; principal; 2019-12-03)
PROC: 10907ZC Drainage of Amniotic Fluid, Therapeutic from Products of Conception, Via Natural or Artificial Opening (ICD-10-PCS; 2019-12-03)
PROC: 3E033VJ Introduction of Other Hormone into Peripheral Vein, Percutaneous Approach (ICD-10-PCS; 2019-12-03)
PROC: 3E0R3BZ Introduction of Anesthetic Agent into Spinal Canal, Percutaneous Approach (ICD-10-PCS; 2019-12-03)
PROC: 00HU33Z Insertion of Infusion Device into Spinal Canal, Percutaneous Approach (ICD-10-PCS; 2019-12-03)
DX: O99.824 Streptococcus B carrier state complicating childbirth (principal); Z3A.39 39 weeks gestation of pregnancy; Z37.0 Single live birth; O69.81X0 Labor and delivery complicated by cord around neck, without compression, not applicable or unspecified
CPT/HCPCS: 01967; 36415; 51701; 59025; 59409; 85025; 86592; A9270-GY; J0290; J2210; J2300; J2590; J3010; J3490; J7050; J7120